=== PATIENT | male | born 1990 | race African-American/Black ===

== ENCOUNTER 2017-09-24 02:39 | Emergency (ER) | payer SELFPAY ==
[~2017-09-24] VITALS: Ht 180.3 cm; Wt 131.8 kg
[~2017-09-24 02:39] MED LIST: Afrin,Genasal Decon, BOTH NARES; Ceftin PO; Claritin,Alavart PO; Dilaudid PO; ENDOCET 5-3251 EACH PO; FOLVITE1 MG PO; Flonase BOTH NARES; Folvite PO; HABITROL,NICODER7 MG TD; Habitrol,Nicoderm CQ TD; Motrin PO; NOHOMEMEDS; Proventil,Ventolin H IH; ULTRAM50 MG PO; Vibramycin, Doryx PO
[2017-09-24 03:21] LABS: IMM.RETIC FRACTION 25.2 % (3-19); RETIC HGB EQUIVALENT 34.5 (28-36); RETICULOCYTE COUNT 4.9 % (0.5-1.8)
[2017-09-24 03:31] LABS: ALBUMIN 4.5 g/dL (3.2-4.8)
[2017-09-24 03:32] LABS: CHLORIDE 99 mEq/L (99-109); POTASSIUM 3.7 mEq/L (3.7-5.4); SODIUM 136 mEq/L (136-147)
[2017-09-24 03:34] LABS: GLUCOSE 104 mg/dL (70-99); TOTAL PROTEIN 8.7 g/dL (6.4-8.3)
[2017-09-24 03:36] LABS: TOTAL BILIRUBIN 2.4 mg/dL (0.0-1.0)
[2017-09-24 03:37] LABS: ALKALINE PHOSPHATASE 60 IU/L (3-129)
[2017-09-24 03:38] LABS: CREATININE 0.8 mg/dL (0.6-1.3); GFR ESTIMATE (CALCULATED) > 59 mL/min/ (58.99-99999)
[2017-09-24 03:39] LABS: AST (GOT) 17 IU/L (2-34); UREA NITROGEN (BUN) 7 mg/dL (9-23)
[2017-09-24 03:40] LABS: ALT (GPT) 18 IU/L (3-49); BASOPHIL (%) 0.2 % (0-1); BASOPHIL COUNT 0.1 K/uL (0-0.1); EOSINOPHIL (%) 0.2 % (0-5); EOSINOPHIL COUNT 0.1 K/uL (0-0.3); HEMATOCRIT 37.6 % (38.0-50.0); HEMOGLOBIN 13.9 G/DL (12.5-16.6); IMMATURE GRANULOCYTE (%) 0.6 % (0.0-0.7); LYMPHOCYTE (%) 4.2 % (15-42); LYMPHOCYTE COUNT 1.3 K/uL (1.0-2.8); MCH 31.3 PG (29.0-34.0); MCV 84.7 FL (86-99); MONOCYTE (%) 11.1 % (3-12); MONOCYTE COUNT 3.4 K/uL (0-0.8); NEUTROPHIL (%) 83.7 % (45-76); NEUTROPHIL COUNT 25.4 K/uL (1.8-6.4); NRBC (%) 0.1 /100 WBC (0-0); PLATELET COUNT 372 K/uL (156-360); RBC DIS.WIDTH-CV 14.2 % (11.8-14.6); RBC DIS.WIDTH-SD 43.5 % (39-53); RED BLOOD COUNT 4.44 M/uL (4.00-5.50)
[2017-09-24 03:44] LABS: WHITE BLOOD COUNT 30.3 K/uL (4.1-10.2)
[2017-09-24] MEDS ORDERED: ZOFRAN ODT4 MG PO (07:12)
[2017-09-24] MEDS ORDERED: MOTRIN800 MG PO (07:12)
[2017-09-24 07:45] VITALS: BP 113/61
== END 2017-09-24 08:10 | disposition home or self-care (01) ==
LOC: EME 02:39
PROVIDERS: Emergency Medicine
DX: J02.0 Streptococcal pharyngitis (principal); E86.0 Dehydration; D57.1 Sickle-cell disease without crisis; Z87.891 Personal history of nicotine dependence
CPT/HCPCS: 71046; 80053; 85025; 85046; 87502; 87651 90; 99281; 99285; J0561; J1100; J2405; J7030